=== PATIENT | female | born 1955 | race Caucasian/White ===

== ENCOUNTER 2019-01-02 15:52 | Emergency (ER) | payer BC, OTHER ==
[2019-01-02] MEDS ORDERED: Ibuprofen TAB* 600 MG PO ONE (17:49)
--- NOTE | 2019-01-02 17:50 | ED ---
Lower Extremity - HPI Summary HPI Summary: Patient complains of left knee pain status post mechanical fall today. Patient states he fell directly onto the point of her left knee. Patient is ambulatory with pain, denies any other pain injury or symptoms. - History of Current Complaint Chief Complaint: EDExtremityLower Stated Complaint: FALL INJURY Time Seen by Provider: 01/02/19 17:39 Hx Obtained From: Patient Hx Last Menstrual Period: 08/30/13 Mechanism Of Injury: Fall From A Standing Position Onset of Pain: Immediate Onset/Duration: Hours Severity Initially: Mild Severity Currently: Mild Pain Intensity: 3 Pain Scale Used: 0-10 Numeric Timing: Constant Location: Is Discrete @ Character Of Pain: Aching, Throbbing Associated Signs And Symptoms: Positive: Knee Pain Aggravating Factor(s): Ambulation, Movement Alleviating Factor(s): Rest Able to Bear Weight: Yes - Allergies/Home Medications Allergies/Adverse Reactions: Allergies Allergy/AdvReac Type Severity Reaction Status Date / Time gabapentin [From Neurontin] Allergy Unknown Verified 01/02/19 16:28 Reaction Details latex Allergy Swelling Verified 01/02/19 16:28 sertraline [From Zoloft] Allergy Difficulty Verified 01/02/19 16:28 Breathing Sulfa (Sulfonamide Allergy Rash Verified 01/02/19 16:28 Antibiotics) terbinafine [From Lamisil] Allergy Rash Verified 01/02/19 16:28 FOOD PRESERVATIVES Allergy Severe Swelling Uncoded 07/19/15 10:00 PRESERVATIVES Allergy Severe See Comment Uncoded 07/19/15 10:00 NOROXIN Allergy Mild Hives Uncoded 07/19/15 10:00 red dye Allergy Difficulty Uncoded 05/27/18 13:07 Breathing PMH/Surg Hx/FS Hx/Imm Hx Endocrine/Hematology History: Denies: Hx Diabetes, Hx Thyroid Disease Cardiovascular History: Denies: Hx Hypertension, Hx Pacemaker/ICD Respiratory History: Denies: Hx Asthma, Hx Chronic Obstructive Pulmonary Disease (COPD) GI History: Reports: Other GI Disorders - SLEEPS ON AN INCLINE FOR INDIGESTION Denies: Hx Ulcer History: Reports: Hx Kidney Stones - 2012 FOLLOWED BY [facility] Musculoskeletal History: Reports: Hx Tendonitis - RIGHT HAND Sensory History: Reports: Hx Contacts or Glasses - GLASSES Denies: Hx Hearing Aid Opthamlomology History: Reports: Hx Contacts or Glasses - GLASSES Psychiatric History: Denies: Hx Panic Disorder - Cancer History Hx Chemotherapy: No Hx Radiation Therapy: No - Surgical History Surgery Procedure, Year, and Place: 3 C-SECTOINS. Fistula. rt and lt breast biopsy Hx Anesthesia Reactions: No Infectious Disease History: No Infectious Disease History: Reports: Hx Shingles - about 11 yrs ago Denies: Hx Hepatitis, Hx Human Immunodeficiency Virus (HIV), Traveled Outside the [place] in Last 30 Days - Family History Known Family History: Positive: None Family History: R & n/C - Social History Alcohol Use: None Hx Substance Use: No Substance Use Type: Reports: None Hx Tobacco Use: No Smoking Status (MU): Never Smoked Tobacco Have You Smoked in the Last Year: No Review of Systems Constitutional: Negative Eyes: Negative ENT: Negative Cardiovascular: Negative Respiratory: Negative Gastrointestinal: Negative Genitourinary: Negative Musculoskeletal: Other Skin: Negative Neurological: Negative Psychological: Normal All Other Systems Reviewed And Are Negative: Yes Physical Exam - Summary Physical Exam Summary: Mild swelling to anterior left knee with small abrasion. Minimal pain with palpation of anterior knee. No palpable palpation medially or laterally or superiorly. Nontender. PMS intact distally. No ecchymosis, erythema, extra warmth, vomiting noted. Patient able to flex and extend to 90. Triage Information Reviewed: Yes Vital Signs On Initial Exam: Initial Vitals Temp Pulse Resp BP Pulse Ox 97.9 F 79 16 193/87 96 01/02/19 16:24 01/02/19 16:24 01/02/19 16:24 01/02/19 16:24 01/02/19 16:24 Vital Signs Reviewed: Yes Appearance: Positive: Well-Appearing Skin: Positive: Warm Head/Face: Positive: Normal Head/Face Inspection Eyes: Positive: Normal Neck: Positive: Supple Respiratory/Lung Sounds: Positive: Clear to Auscultation Cardiovascular: Positive: Normal Abdomen Description: Positive: Nontender Musculoskeletal: Positive: Normal Neurological: Positive: Normal Psychiatric: Positive: Normal AVPU Assessment: Alert - [place] Coma Scale Best Eye Response: 4 - Spontaneous Best Motor Response: 6 - Obeys Commands Best Verbal Response: 5 - Oriented Coma Scale Total: 15 Diagnostics - Vital Signs Vital Signs Temp Pulse Resp BP Pulse Ox 01/02/19 16:24 97.9 F 79 16 193/87 96 - Laboratory Lab Statement: Any lab studies that have been ordered have been reviewed, and results considered in the medical decision making process. Lower Extremity Course/Dx - Course Course Of Treatment: Patient complains of left knee pain status post mechanical fall today. Patient states he fell directly onto the point of her left knee. Patient is ambulatory with pain, denies any other pain injury or symptoms. Physical exam:Mild swelling to anterior left knee with small abrasion. Minimal pain with palpation of anterior knee. No palpable palpation medially or laterally or superiorly. Nontender. PMS intact distally. No ecchymosis, erythema, extra warmth, vomiting noted. Patient able to flex and extend to 90 . Vital signs within normal limits. X-ray negative for acute process. Patient refused crutches. Advised patient ibuprofen, rest, ice and elevation. Weightbearing as tolerated. - Diagnoses Provider Diagnoses: Fall, Knee pain, acute Discharge - Sign-Out/Discharge Documenting (check all that apply): Patient Departure Patient Received Moderate/Deep Sedation with Procedure: No - Discharge Plan Condition: Stable Disposition: HOME Patient Education Materials: Knee Pain (ED) Referrals: Gold Ayala MD [Primary Care Provider] - Additional Instructions: Take ibuprofen 600 mg up to 3 times a day if needed. Ice, rest and elevation for pain and swelling. Weightbearing as tolerated. Return to the ED for any new or worsening symptoms. - Billing Disposition and Condition Condition: STABLE Disposition: Home
[2019-01-02 18:13] VITALS: BP 195/98
== END 2019-01-02 18:12 | disposition home or self-care (01) ==
LOC: ED 15:52
DX: M25.562 Pain in left knee (principal); Z87.442 Personal history of urinary calculi
CPT/HCPCS: 99282; A9270-GY

== ENCOUNTER 2019-02-20 06:01 | Day surgery (SDC) | payer BC, OTHER ==
[~2019-02-20 06:01] MED LIST: Buffered Lidocaine 1% SYRIN* 1 ML/SYRINGE INTRADERM ONE; Lactated Ringers 1000 ML Bag* 1,000 ML IV SCH
[2019-02-20] MEDS ORDERED: Buffered Lidocaine 1% SYRIN* 1 ML/SYRINGE INTRADERM ONE (06:21)
[2019-02-20] MEDS ORDERED: Midazolam* 1 MG/ML 2 ML VIAL (2 MG) ONE (07:12)
[2019-02-20] MEDS ORDERED: Lidocaine 2% PF * 5 ML VIAL ONE (07:12)
[2019-02-20] MEDS ORDERED: fentaNYL* 50 MCG/ML 2 ML VIAL (100 MCG VIAL) ONE (07:12)
[2019-02-20] MEDS ORDERED: Propofol* 10 MG/ML 20 ML BTL ONE (07:12)
[2019-02-20] MEDS ORDERED: Lidocain 1% EPI 1:100,000 * 30 ML MDV ONE (07:22)
[2019-02-20] MEDS ORDERED: Bupivacaine 0.25% SDV PF* 10 ML VIAL INJ ONE (07:32)
[2019-02-20] MEDS ORDERED: Naloxone* 0.4 MG/ML 1 ML VIAL IV PRN (08:08)
[2019-02-20] MEDS ORDERED: Ondansetron INJ* 2 MG/ML VIAL IV PRN (08:08)
[2019-02-20 08:23] VITALS: BP 131/76
--- NOTE | 2019-02-20 09:45 | OP ---
DATE OF OPERATION: 02/20/19 - [facility] DATE OF : 59 SURGEON: Gallo Tirado MD EGG CASER: RICHIE Walker ANESTHESIOLOGIST: Dr. May. ANESTHESIA: Local MAC. PRE-OP DIAGNOSIS: Right middle and ring trigger fingers. POST-OP DIAGNOSIS: Right middle and ring trigger fingers. OPERATIVE PROCEDURE: 1. Right middle trigger finger release of A1 tanya. 2. Right ring finger trigger finger release of A1 tanya with tenosynovectomy. ESTIMATED BLOOD LOSS: 2 mL. COMPLICATIONS: None. FINDINGS: See above and below. DESCRIPTION OF PROCEDURE: Cora was seen in the preoperative holding area. The correct site, side, and procedure were identified. We came back to the operating room where the arm was prepped and draped in the usual fashion and time-out was performed. I had infiltrated the operative sites with 0.25% plain Marcaine after having a time-out. The arm was exsanguinated with the Esmarch and the tourniquet was inflated to 250 mmHg. I made a longitudinal 1 cm incision over the middle finger A1 tanya and then a second longitudinal incision over the ring finger A1 tanya. On the middle finger, I utilized the distal ferreira crease. The dissection was bluntly carried down with the tenotomy scissors and full-thickness flaps were spread off of both A1 pulleys. I first began on the ring finger and Ragnell retractors were in place to protect the digital nerves and size the A1 tanya along its radial third longitudinally in line with the tendon. The release was completed distally with the tenotomy scissors and then proximally with the tenotomy scissors as well. I then came to the ring finger and placed retractors. In a like fashion, I released the A1 tanya longitudinally along the radial third in line with the tendon. The release was completed distally and proximally with the tenotomy scissors. There was somewhat tenosynovitis throughout the ring finger tendons and so all of that was excised. Once everything was looking nice, was good, and the tendons looking nice and clean, I irrigated out the wound. No more triggering was encountered. The skin was closed with 4-0 nylon suture. Soft dressings were applied and she was taken to the recovery room in stable condition. [id number]/[facility] #: [id number] [facility] CENTERRafael
== END 2019-02-20 08:29 | disposition home or self-care (01) ==
LOC: OR 06:01
PROVIDERS: ATTEND Orthopaedic Surgery Hand Surgery
DX: M65.331 Trigger finger, right middle finger (principal); M65.341 Trigger finger, right ring finger; M19.90 Unspecified osteoarthritis, unspecified site; Z85.3 Personal history of malignant neoplasm of breast; Z68.41 Body mass index [BMI] 40.0-44.9, adult
CPT/HCPCS: J2250; J2704; J3010; J3490

== ENCOUNTER 2019-08-08 17:19 | Emergency (ER) | payer BC ==
--- NOTE | 2019-08-08 19:02 | UC ---
Skin Complaint HPI - HPI Summary HPI Summary: 64 yo female presents for a wound check. She tells me that she has had 3 lumpectomies of her left breast from the same incision site of the last month. The most recent operation was on 08/01. Today she noticed watery bloody discharge from the incision site. She called her surgeon in [place] and they recommend she be evaluated. She has no pain, fever, or chills. No hx of diabetes. She is scheduled to see her surgeon in 2 days for a post op follow up. - History of Current Complaint Chief Complaint: UCWounds Time Seen by Provider: 08/08/19 19:02 Stated Complaint: INCISION CHECK Hx Obtained From: Patient Hx Last Menstrual Period: 08/30/13 Onset/Duration: Sudden Onset Current Severity: None Pain Intensity: 0 - Allergy/Home Medications Allergies/Adverse Reactions: Allergies Allergy/AdvReac Type Severity Reaction Status Date / Time sertraline [From Zoloft] Allergy Severe Difficulty Verified 08/08/19 18:59 Breathing Sulfa (Sulfonamide Allergy Severe Rash Verified 08/08/19 18:59 Antibiotics) terbinafine [From Lamisil] Allergy Intermediate Rash Verified 08/08/19 18:59 latex Allergy Mild Rash Verified 08/08/19 18:59 exemestane Allergy Hives/Diff. Verified 08/08/19 18:59 Breathing/I tching gabapentin [From Neurontin] Allergy Unknown Verified 08/08/19 18:59 Reaction Details FOOD PRESERVATIVES Allergy Severe Swelling Uncoded 02/20/19 06:30 PRESERVATIVES Allergy Severe Hives/Diff. Uncoded 02/20/19 06:30 Breathing/I tching red dye Allergy Severe Difficulty Uncoded 02/20/19 06:30 Breathing NOROXIN Allergy Mild Hives Uncoded 02/20/19 06:30 PMH/Surg Hx/FS Hx/Imm Hx - Additional Past Medical History Additional PMH: Left breast lump Endocrine History: Thyroid Disease - Surgical History Surgical History: Yes Surgery Procedure, Year, and Place: 3 C-SECTIONS. ANAL FISTULA. Rt and Lt breast biopsy. Right Breast Lumopectomy 2014 - Family History Known Family History: Positive: None Family History: R & n/C - Social History Lives: With Family Alcohol Use: None Substance Use Type: None Smoking Status (MU): Never Smoked Tobacco Have You Smoked in the Last Year: No Review of Systems All Other Systems Reviewed And Are Negative: No Constitutional: Positive: Negative Skin: Positive: Other - Wound drainage left breast Respiratory: Positive: Negative Cardiovascular: Positive: Negative Musculoskeletal: Positive: Negative Neurological: Positive: Negative Psychological: Positive: Negative Physical Exam - Summary Physical Exam Summary: GENERAL: NAD. WDWN. No pain distress. SKIN: LEFT BREAST: inferior aspect at 6 o'clock position with 2.0cm vertical healing surgical incision. Scant watery bloody discharge from the superior aspect of the incision with 1mm width of open wound. No dehiscence, NTTP, no purulent drainage, no streaking or erythema. CHEST: No accessory muscle use. Breathing comfortably and in no distress. CV: Pulses intact. Cap refill <2seconds NEURO: Alert. PSYCH: Age appropriate behavior. Triage Information Reviewed: Yes Vital Signs: Initial Vital Signs Temp 99 F 08/08/19 18:52 Pulse 88 08/08/19 18:52 Pulse Ox 98 08/08/19 18:52 Vital Signs Reviewed: Yes Course/Dx - Course Course Of Treatment: Suspect surgical site drainage without infection. Wound was redressed with steri strips, telfa, and tegaderm. Advised to see her surgeon in 2 days as planned or go to the ED if she develops worsening drainage , a fever, or has pain. - Diagnoses Provider Diagnosis: Incisional breast wound Discharge ED - Sign-Out/Discharge Documenting (check all that apply): Patient Departure All imaging exams completed and their final reports reviewed: No Studies - Discharge Plan Condition: Stable Disposition: HOME Patient Education Materials: Acute Wound Care (ED) Referrals: Gold Ayala MD [Primary Care Provider] - Additional Instructions: If you develop a fever, shortness of breath, chest pain, new or worsening symptoms - please call your PCP or go to the ED immediately. Please keep the bandage in place and follow up with your surgeon in 2 days as scheduled - Billing Disposition and Condition Condition: STABLE Disposition: Home
== END 2019-08-08 20:10 | disposition home or self-care (01) ==
LOC: UCEAST 17:19
DX: Z48.89 Encounter for other specified surgical aftercare (principal); Z88.8 Allergy status to other drugs, medicaments and biological substances; Z88.2 Allergy status to sulfonamides; Z91.040 Latex allergy status; Z91.02 Food additives allergy status; Z91.09 Other allergy status, other than to drugs and biological substances
CPT/HCPCS: 99211; G0463

== ENCOUNTER 2019-10-23 18:37 | Emergency (ER) | payer BC ==
[2019-10-23 19:30] VITALS: BP 160/85
--- NOTE | 2019-10-23 19:48 | UC ---
Throat Pain/Nasal Ovidio HPI - HPI Summary HPI Summary: The patient is a 64-year-old female that presents here with the onset of nasal congestion and facial pressure and pain which started this morning. She is a teacher. 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 She denies any fever or chills. She denies any myalgias. She has a mild cough. She states she often has trouble with her sinuses. - History of Current Complaint Chief Complaint: UCRespiratory Stated Complaint: SINUS COMPLAINT Time Seen by Provider: 10/23/19 19:25 Hx Obtained From: Patient Hx Last Menstrual Period: 08/30/13 Onset/Duration: Gradual Onset Severity: Mild Pain Intensity: 4 Pain Scale Used: 0-10 Numeric Associated Signs & Symptoms: Positive: Sinus Discomfort - Epiglottits Risk Factors Epiglottis Risk Factors: Negative - Allergies/Home Medications Allergies/Adverse Reactions: Allergies Allergy/AdvReac Type Severity Reaction Status Date / Time sertraline [From Zoloft] Allergy Severe Difficulty Verified 10/23/19 19:16 Breathing Sulfa (Sulfonamide Allergy Severe Rash Verified 10/23/19 19:16 Antibiotics) terbinafine [From Lamisil] Allergy Intermediate Rash Verified 10/23/19 19:16 latex Allergy Mild Rash Verified 10/23/19 19:16 exemestane Allergy Hives/Diff. Verified 10/23/19 19:16 Breathing/I tching gabapentin [From Neurontin] Allergy Unknown Verified 10/23/19 19:16 Reaction Details FOOD PRESERVATIVES Allergy Severe Swelling Uncoded 02/20/19 06:30 PRESERVATIVES Allergy Severe Hives/Diff. Uncoded 02/20/19 06:30 Breathing/I tching red dye Allergy Severe Difficulty Uncoded 02/20/19 06:30 Breathing NOROXIN Allergy Mild Hives Uncoded 02/20/19 06:30 PMH/Surg Hx/FS Hx/Imm Hx Previously Healthy: Yes Cancer History: Breast Cancer - Surgical History Surgical History: Yes Surgery Procedure, Year, and Place: 3 C-SECTIONS. ANAL FISTULA. Rt and Lt breast biopsy. Right Breast Lumopectomy 2014 - Family History Known Family History: Positive: None Family History: R & n/C - Social History Alcohol Use: None Substance Use Type: None Smoking Status (MU): Never Smoked Tobacco Have You Smoked in the Last Year: No Review of Systems All Other Systems Reviewed And Are Negative: Yes Constitutional: Positive: Fatigue Skin: Positive: Negative Eyes: Positive: Negative ENT: Positive: Negative, Nasal Discharge, Sinus Congestion Respiratory: Positive: Cough Cardiovascular: Positive: Negative Gastrointestinal: Positive: Negative Genitourinary: Positive: Negative Motor: Positive: Negative Neurovascular: Positive: Negative Musculoskeletal: Positive: Negative Neurological: Positive: Negative Psychological: Positive: Negative Physical Exam Vital Signs: Initial Vital Signs Temp 98.7 F 10/23/19 19:08 Pulse 88 10/23/19 19:08 Resp 16 10/23/19 19:08 BP 160/85 10/23/19 19:08 Pulse Ox 97 10/23/19 19:08 Throat Pain/Nasal Course/Dx - Course Course Of Treatment: influenza (-) - Differential Dx/Diagnosis Provider Diagnosis: Rhinosinusitis Discharge ED - Sign-Out/Discharge Documenting (check all that apply): Patient Departure All imaging exams completed and their final reports reviewed: No Studies - Discharge Plan Condition: Stable Disposition: HOME Patient Education Materials: Rhinosinusitis (ED) Forms: *Work Release Referrals: Gold Ayala MD [Primary Care Provider] - As Soon As Possible Additional Instructions: your influenza test was negative saline nasal spray twice daily warm facial compresses due to the upcoming surgery I suggest you follow up with your MD tomorrow as planned - Billing Disposition and Condition Condition: STABLE Disposition: Home
[2019-10-23 20:00] LABS: Influenza A Molecular NEGATIVE (Negative); Influenza B Molecular NEGATIVE (Negative)
== END 2019-10-23 20:19 | disposition home or self-care (01) ==
LOC: UCEAST 18:37
DX: J32.9 Chronic sinusitis, unspecified (principal); Z85.3 Personal history of malignant neoplasm of breast; R53.83 Other fatigue; Z88.8 Allergy status to other drugs, medicaments and biological substances; Z91.09 Other allergy status, other than to drugs and biological substances; Z91.040 Latex allergy status; Z88.2 Allergy status to sulfonamides
CPT/HCPCS: 99211; G0463

== ENCOUNTER 2019-10-31 13:21 | Emergency (ER) | payer BC ==
--- NOTE | 2019-10-31 14:23 | ED ---
Complex/Multi-Sys Presentation - HPI Summary HPI Summary: This pt is a 64 y/o female presenting to [facility] c/o clogged drain s/p left mastectomy on 10/26/19. Pt reports she had 3 lumpectomy done in the past and last (10/26) she had left mastectomy done in [place]. She noticed last night she had decreased drainage output. She is unsure if it is leaking or clogged. Pt notes she arrived home 4 days ago on Wednesday (10/27) and emptied 59 cc from her drain. Then she went 24 hours without emptying her drain and then emptied 70 cc, then 64 cc, and 54 cc. Last night around 0 she noticed she had decreased drainage output. Today pt has emptied her drain twice, the first time she had 15 cc and then she had 10 cc. Pt denies any associated pain or fever. She denies any other complaints. Her next appointment for follow up in [place] is on 11/02/19. PMHx: x3, fistula, kidney stones, trigger finger surgery. Allergic to Sulfa and dyes. Medications reviewed. Allergies noted. - History Of Current Complaint Chief Complaint: EDGeneral Time Seen by Provider: 10/31/19 14:14 Hx Obtained From: Patient Onset/Duration: Lasting Hours, Still Present Timing: Hours Severity Currently: Mild Aggravating Factor(s): nothing Alleviating Factor(s): nothing Associated Signs And Symptoms: Negative: SOB, Chest Pain, Nausea, Diarrhea, Fever Related History: Other - s/p left mastectomy on 10/26/19 - Allergies/Home Medications Allergies/Adverse Reactions: Allergies Allergy/AdvReac Type Severity Reaction Status Date / Time sertraline [From Zoloft] Allergy Severe Difficulty Verified 10/31/19 13:38 Breathing Sulfa (Sulfonamide Allergy Severe Rash Verified 10/31/19 13:38 Antibiotics) terbinafine [From Lamisil] Allergy Intermediate Rash Verified 10/31/19 13:38 latex Allergy Mild Rash Verified 10/31/19 13:38 exemestane Allergy Hives/Diff. Verified 10/31/19 13:38 Breathing/I tching gabapentin [From Neurontin] Allergy Unknown Verified 10/31/19 13:38 Reaction Details FOOD PRESERVATIVES Allergy Severe Swelling Uncoded 02/20/19 06:30 PRESERVATIVES Allergy Severe Hives/Diff. Uncoded 02/20/19 06:30 Breathing/I tching red dye Allergy Severe Difficulty Uncoded 02/20/19 06:30 Breathing NOROXIN Allergy Mild Hives Uncoded 02/20/19 06:30 Home Medications: Home Medications Acetaminophen TAB* [Tylenol TAB*] 650 mg PO Q4H PRN 10/31/19 [History Confirmed 10/31/19] EPINEPHrine [Epipen] 0.3 mg IJ ONCE PRN 10/31/19 [History Confirmed 10/31/19] Ibuprofen TAB* [Motrin TAB* 400 MG] 400 mg PO Q6H PRN 10/31/19 [History Confirmed 10/31/19] Lysine 400 mg PO QAM PRN 10/31/19 [History Confirmed 10/31/19] PMH/Surg Hx/FS Hx/Imm Hx Endocrine/Hematology History: Reports: Hx Thyroid Disease - Hyperthyroid Denies: Hx Diabetes Cardiovascular History: Denies: Hx Hypertension, Hx Pacemaker/ICD, Hx Rheumatic Fever, Other Cardiovascular Problems/Disorders Respiratory History: Denies: Hx Asthma, Hx Chronic Obstructive Pulmonary Disease (COPD), Hx Pulmonary Edema, Hx Pulmonary Embolism, Other Respiratory Problems/Disorders GI History: Reports: Other GI Disorders - SLEEPS ON AN INCLINE FOR INDIGESTION Denies: Hx Ulcer History: Reports: Hx Kidney Stones - Stones-lithotripsy x 2 Denies: Hx Renal Disease, Other Problems/Disorders Musculoskeletal History: Reports: Hx Arthritis - Fell on left knee, Hx Tendonitis - RIGHT HAND Comment Only: Other Musculoskeletal History - Trigger right ring finger Sensory History: Reports: Hx Contacts or Glasses - Read glasses Denies: Hx Hearing Aid Opthamlomology History: Reports: Hx Contacts or Glasses - Read glasses Neurological History: Denies: Other Neuro Impairments/Disorders Psychiatric History: Reports: Hx Depression - no current treatment Denies: Hx Panic Disorder - Cancer History Cancer Type, Location and Year: breast Hx Chemotherapy: No - Radiation Hx Radiation Therapy: No - Surgical History Surgical History: Yes Surgery Procedure, Year, and Place: 3 C-SECTIONS. ANAL FISTULA. Rt and Lt breast biopsy. Right Breast Lumopectomy 2014. Left mastectomy 10/26/19 Hx Anesthesia Reactions: No Infectious Disease History: No Infectious Disease History: Reports: Hx Shingles - about 11 yrs ago Denies: Hx Hepatitis, Hx Human Immunodeficiency Virus (HIV), Traveled Outside the [place] in Last 30 Days - Family History Known Family History: Negative: Cardiac Disease, Hypertension, Diabetes - Social History Alcohol Use: None Hx Substance Use: No Substance Use Type: Reports: None Hx Tobacco Use: No Smoking Status (MU): Never Smoked Tobacco Have You Smoked in the Last Year: No Review of Systems Negative: Fever Respiratory: Negative Gastrointestinal: Negative Skin: Negative Neurological: Negative All Other Systems Reviewed And Are Negative: Yes Physical Exam - Summary Physical Exam Summary: Constitutional: Well-developed, Well-nourished, Alert. (-) Distressed Skin: Warm, Dry HENT: Normocephalic; Atraumatic Eyes: Conjunctiva normal Neck: Musculoskeletal ROM normal neck. (-) JVD, (-) Stridor, (-) Tracheal deviation Cardio: Rhythm regular, rate normal, Heart sounds normal; Intact distal pulses; The pedal pulses are 2+ and symmetric. Radial pulses are 2+ and symmetric. (-) Murmur Pulmonary/Chest wall: Effort normal. (-) Respiratory distress, (-) Wheezes, (-) Rales. Left mastectomy incision is intact. Bulb suction and drain in place. Serous fluid in the tubing. Abd: Soft, (-) tenderness, (-) Distension, (-) Guarding, (-) Rebound Musculoskeletal: (-) Edema Lymph: (-) Cervical adenopathy Neuro: Alert, Oriented x3 Psych: Mood and affect Normal Triage Information Reviewed: Yes Vital Signs On Initial Exam: Initial Vitals Temp Pulse Resp BP Pulse Ox 97.8 F 74 16 174/90 98 10/31/19 13:35 10/31/19 13:35 10/31/19 13:35 10/31/19 13:35 10/31/19 13:35 Vital Signs Reviewed: Yes Procedures - Sedation Patient Received Moderate/Deep Sedation with Procedure: No Diagnostics - Vital Signs Vital Signs Temp Pulse Resp BP Pulse Ox 10/31/19 13:35 97.8 F 74 16 174/90 98 - Laboratory Lab Statement: Any lab studies that have been ordered have been reviewed, and results considered in the medical decision making process. Re-Evaluation - Re-Evaluation First Eval Re-Evaluation Time: 15:40 Comment: Dr. Danielle at bedside. Complex Multi-Symp Course/Dx Course Of Treatment: Patient's here with a malfunctioning SKYE drain. Surgery was called and 60 SKYE drain at bedside. Patient was discharged. - Diagnoses Provider Diagnoses: Postoperative complication - Physician Notifications Discussed Care Of Patient With: Ten Danielle Time Discussed With Above Provider: 15:27 Instructed by Provider To: Other - Discussed with Dr. Danielle, surgeon, who states he will come see the patient. Discharge ED - Sign-Out/Discharge Documenting (check all that apply): Patient Departure - Discharge home - Discharge Plan Condition: Stable Disposition: HOME Patient Education Materials: Mastectomy (DC) Referrals: Gold Ayala MD [Primary Care Provider] - Additional Instructions: Follow up with your surgeon on scheduled appointment. PLEASE RETURN TO EMERGENCY DEPARTMENT FOR ANY FEVERS, CHILLS, ISSUES WITH DRAIN. - Billing Disposition and Condition Condition: STABLE Disposition: Home - Attestation Statements Document Initiated by Yaritza: Yes Documenting Scribe: Breana Powell Provider For Whom Scribe is Documenting (Include Credential): Masood Lai MD Scribe Attestation: Breana Arreola, scribed for Masood Lai MD on 10/31/19 at 1726. Scribe Documentation Reviewed: Yes Provider Attestation: The documentation as recorded by the Breana reeves accurately reflects the service I personally performed and the decisions made by Masood johnson MD Status of Scribe Document: Viewed
[2019-10-31 15:54] VITALS: BP 173/84
== END 2019-10-31 15:53 | disposition home or self-care (01) ==
LOC: ED 13:21
DX: T81.89XA Other complications of procedures, not elsewhere classified, initial encounter (principal); Z90.12 Acquired absence of left breast and nipple; E05.90 Thyrotoxicosis, unspecified without thyrotoxic crisis or storm; F32.9 Major depressive disorder, single episode, unspecified; Z88.2 Allergy status to sulfonamides; Z88.8 Allergy status to other drugs, medicaments and biological substances; Z88.1 Allergy status to other antibiotic agents; Z88.3 Allergy status to other anti-infective agents; Z91.040 Latex allergy status
CPT/HCPCS: 99281